=== PATIENT | female | born 1980 | race Caucasian/White ===

== ENCOUNTER → 2016-11-25 | Outpatient (CLI) | payer OTHER ==
[2016-11-25 10:51] LABS: HEMOGLOBIN 14.8 g/dL (12.2-16.2); LYMPH # 1.9 K/mm3 (0.7-4.5); LYMPH % 36.7 % (10-50.0)
[2016-11-25 11:08] LABS: URINE BILIRUBIN - DIPSTICK NEGATIVE (NEG); URINE BLOOD 1+ (NEG)
[2016-11-25 11:22] LABS: BUN 12 mg/dL (7-18)
[2016-11-25 11:54] LABS: GFR (ESTIMATED) 81 ML/MIN (59-)
[2016-11-26 08:41] LABS: HBsAg Screen Negative (Negative); HIV Screen 4th Generation wRfx Non Reactive (Non Reactive)
== END ==
LOC: LAB 10:22
PROVIDERS: Internal Medicine Adolescent Medicine
DX: Z00.00 Encounter for general adult medical examination without abnormal findings (principal)
CPT/HCPCS: G0432